=== PATIENT | female | born 1955 | race Caucasian/White ===

== ENCOUNTER 2024-09-08 08:56 | Outpatient (CLI) | payer MEDICARE, OTHER, SELFPAY ==
--- NOTE | ~2024-09-08 | MR_ITS ---
MRI of the right shoulder Technique: Axial proton-density fat-sat images, coronal proton density fat-sat and T2 fat-sat images, and sagittal T1-weighted and T2 fat-sat images were acquired. Clinical History: Rotator cuff tear Findings: There is moderate to advanced AC joint degenerative change of bony productive change of the distal clavicle and small amount of fluid in the joint. Small subacromial spur present. Coracoclavic ular, coracoacromial, and coracohumeral ligaments are intact. There is severe supraspinatus and infraspinatus tendinosis, without partial or full-thickness tear. T here is severe subscapularis tendinosis without definite tear. Tendon of the long head of the biceps is intact. There is probable superior labral tear with anterior and posterior extension. Inferior glenohumeral ligament is intact. There is moderate glenohumeral joint effusion. There is hig h-grade chondromalacia at the inferior aspect of the glenohumeral joint. There is minimal fluid in th e subacromial/subdeltoid bursa. No muscle atrophy or edema. There is prominent fluid distention of th e subscapularis recess. Impression: Severe rotator cuff tendinosis without tear. Degenerative SLAP tear of the labrum. Moderate glenohumeral joint effusion with prominent fluid distention of the subscapularis recess. Degenerative changes of the AC joint and glenohumeral joint, as detailed above. Reviewed, dictated and finalized at [facility]. Impression: Severe rotator cuff tendinosis without tear. Degenerative SLAP tear of the labrum. Moderate glenohumeral joint effusion with prominent fluid distention of the sub scapularis recess. Degenerative changes of the AC joint and glenohumeral joint, as detailed above.
== END 2024-09-08 08:57 | disposition home or self-care (01) ==
LOC: GOSHIMG 08:58
PROVIDERS: PCP Physician Assistant; Visit Provider Physician Assistant
DX: S46.011A Strain of muscle(s) and tendon(s) of the rotator cuff of right shoulder, initial encounter (principal); M75.41 Impingement syndrome of right shoulder; M19.011 Primary osteoarthritis, right shoulder; X58.XXXA Exposure to other specified factors, initial encounter; M25.411 Effusion, right shoulder
CPT/HCPCS: 73221